=== PATIENT | male | born 1955 | race Caucasian/White ===

== ENCOUNTER 2016-11-16 10:34 | Inpatient (IN) | payer MEDICARE, OTHER ==
[~2016-11-16] VITALS: Ht 180.3 cm; Wt 91.1 kg
[2016-11-16] MEDS ORDERED: NEB-XOPENEX 0.63 MG/3 ML INH ONE (11:25)
[2016-11-16] MEDS ORDERED: NEB-ATROVENT INH ONE (11:26)
[2016-11-16] MEDS ORDERED: METHYLPRED SOD SUCC 125 MG/2 ML VIAL ONE (11:41)
[2016-11-16] MEDS ORDERED: NEB-XOPENEX 1.25 MG/3 ML INH ONE (12:12)
[2016-11-16] MEDS ORDERED: SODIUM CHLORIDE 0.9% 250 ML IV ONE (12:23)
[2016-11-16] MEDS ORDERED: CEFTRIAXONE 1 GM VIAL ONE (12:23)
[2016-11-16] MEDS ORDERED: SODIUM CHLORIDE 0.9% 100 ML IV ONE (12:23)
[2016-11-16] MEDS ORDERED: SODIUM CHLORIDE 0.9% 1,000 ML ONE (12:23)
[2016-11-16] MEDS ORDERED: AZITHROMYCIN 500 MG VIAL IV ONE (12:23)
[2016-11-16] MEDS ORDERED: Phytonadione 5 MG TAB PO ONE (12:55)
[2016-11-16] MEDS ORDERED: ONDANSETRON 4 MG VIAL IV PRN (12:55)
[2016-11-16] MEDS ORDERED: SALINE FLUSH 10 ML FLUSH PRN (12:55)
[2016-11-16] MEDS ORDERED: DUONEB INH SCH (12:55)
[2016-11-16] MEDS ORDERED: MORPHINE SULFATE 60 MG PO PRN (13:05)
[2016-11-16] MEDS ORDERED: OPTIRAY 350 100 ML VIAL HMH IV ONE (16:15)
[2016-11-16 16:33] VITALS: BP_SYST 121; RESP 18; TEMP 98
[2016-11-16 16:35] VITALS: Ht 180.3 cm; Wt 91.1 kg
[2016-11-16 17:24] VITALS: RESP 20
[2016-11-16] MEDS ORDERED: MISSING DOSE XX ONE ×3 (17:45→23:10)
[2016-11-16 19:42] VITALS: BP_SYST 129; RESP 18; TEMP 97.8
[2016-11-16] MEDS: NEB-ATROVENT INH SCH ×2 (19:48→23:00)
[2016-11-16] MEDS: NEB-XOPENEX 1.25 MG/3 ML INH SCH ×2 (19:51→23:09)
[2016-11-16] MEDS: SALINE FLUSH 10 ML FLUSH SCH (20:49)
[2016-11-16] MEDS: AMITRIPTYLINE 50 MG TAB PO SCH (20:50)
[2016-11-16] MEDS: Atorvastatin 40 MG TAB PO SCH (21:14)
[2016-11-16] MEDS: MORPHINE 60 MG PO SCH (22:30)
[2016-11-16 23:02] VITALS: BP_SYST 154; RESP 20; TEMP 97.5
[2016-11-17] VITALS (7 sets, daily range): BP systolic 144–153; RESP 16–22; TEMP 97.4–98.2
[2016-11-17] MEDS: NEB-XOPENEX 1.25 MG/3 ML INH SCH ×5 (02:46→23:38)
[2016-11-17] MEDS: SODIUM CHLORIDE 0.9% FLUSH BAG 500 ML IV SCH (05:11)
[2016-11-17] MEDS: PANTOPRAZOLE 40 MG TAB PO SCH (06:18)
[2016-11-17] MEDS: MORPHINE 60 MG PO SCH ×3 (06:22→23:12)
[2016-11-17] MEDS: MORPHINE 2 MG/ML PO PRN (06:22)
[2016-11-17] MEDS: NEB-ATROVENT INH SCH ×4 (07:45→23:38)
[2016-11-17] MEDS ORDERED: Atorvastatin 40 MG TAB PO SCH (09:00)
[2016-11-17] MEDS: SALINE FLUSH 10 ML FLUSH SCH ×2 (09:23→20:50)
[2016-11-17] MEDS: Finasteride 5 MG TAB PO SCH (09:23)
[2016-11-17] MEDS: CEFTRIAXONE 1 GM in SODIUM CHLORIDE 0.9% 50 ML IV SCH (09:23)
[2016-11-17] MEDS: PREDNISONE 20 MG TAB PO SCH (09:24)
[2016-11-17] MEDS: AZITHROMYCIN 250 MG TAB PO SCH (09:24)
[2016-11-17] MEDS: amLODIPine 10 MG TAB PO SCH (12:40)
[2016-11-17] MEDS: NEB-BUDESONIDE 0.5 MG INH SCH (20:09)
[2016-11-17] MEDS: Atorvastatin 40 MG TAB PO SCH (20:50)
[2016-11-17] MEDS: AMITRIPTYLINE 50 MG TAB PO SCH (20:51)
[2016-11-18 04:08] VITALS: BP_SYST 147; TEMP 97.7
[2016-11-18 04:09] VITALS: RESP 20
[2016-11-18] MEDS: PANTOPRAZOLE 40 MG TAB PO SCH (06:06)
[2016-11-18] MEDS: MORPHINE 60 MG PO SCH (06:06)
[2016-11-18] MEDS: SODIUM CHLORIDE 0.9% FLUSH BAG 500 ML IV SCH (06:08)
[2016-11-18] MEDS: NEB-BUDESONIDE 0.5 MG INH SCH (07:05)
[2016-11-18] MEDS: NEB-ATROVENT INH SCH ×2 (07:05→11:38)
[2016-11-18] MEDS: NEB-XOPENEX 1.25 MG/3 ML INH SCH ×2 (07:05→11:38)
[2016-11-18] MEDS: SALINE FLUSH 10 ML FLUSH SCH (07:54)
[2016-11-18 08:01] VITALS: BP_SYST 137; RESP 20; TEMP 98.1
[2016-11-18] MEDS ORDERED: LISINOPRIL 10 MG TAB PO SCH (09:00)
[2016-11-18] MEDS: PREDNISONE 20 MG TAB PO SCH (09:24)
[2016-11-18] MEDS: Finasteride 5 MG TAB PO SCH (09:25)
[2016-11-18] MEDS: CEFTRIAXONE 1 GM in SODIUM CHLORIDE 0.9% 50 ML IV SCH (09:25)
[2016-11-18] MEDS: AZITHROMYCIN 250 MG TAB PO SCH (09:25)
[2016-11-18] MEDS: amLODIPine 10 MG TAB PO SCH (09:25)
[2016-11-18] MEDS: MORPHINE 2 MG/ML PO PRN (10:16)
[2016-11-18] MEDS ORDERED: GUAIFENESIN ER 600 MG TABCR PO SCH (11:05)
[2016-11-18 11:42] VITALS: BP_SYST 135; RESP 20; TEMP 97.6
[2016-11-18 12:26] VITALS: BP_SYST 135; RESP 20; TEMP 97.6
[2016-11-18 12:31] VITALS: BP_SYST 135; RESP 20; TEMP 97.6
== END 2016-11-18 13:36 | disposition home health service (06) | DRG 189 ==
LOC: ENRESERVTM → ENRESERVDT → ER 10:34 → EMR 13:56 → PCU2 16:17 → 2NO 11-17 16:37
PROVIDERS: ADMIT Internal Medicine; ATTEND Internal Medicine
DX: J96.01 Acute respiratory failure with hypoxia (principal); J18.9 Pneumonia, unspecified organism; J44.0 Chronic obstructive pulmonary disease with (acute) lower respiratory infection; I69.954 Hemiplegia and hemiparesis following unspecified cerebrovascular disease affecting left non-dominant side; J44.1 Chronic obstructive pulmonary disease with (acute) exacerbation; R59.0 Localized enlarged lymph nodes; R79.1 Abnormal coagulation profile; G89.4 Chronic pain syndrome; M19.90 Unspecified osteoarthritis, unspecified site; I10 Essential (primary) hypertension; E78.5 Hyperlipidemia, unspecified; K21.9 Gastro-esophageal reflux disease without esophagitis; N40.0 Benign prostatic hyperplasia without lower urinary tract symptoms; Z87.891 Personal history of nicotine dependence; G47.33 Obstructive sleep apnea (adult) (pediatric); K22.70 Barrett's esophagus without dysplasia; Z79.01 Long term (current) use of anticoagulants
CPT/HCPCS: 36415; 71010; 71260; 80048; 80053; 82553; 83880; 84484; 85025; 85610; 85730; 87040; 87071; 87278; 87299; 87804; 93005; 94640; 94664; 94799; 99223; 99232; 99233; 99239